=== PATIENT | female | born 1990 | race Caucasian/White ===

== ENCOUNTER 2023-07-24 12:46 | Emergency (ER) | payer BC, SELFPAY ==
[2023-07-24 12:54] VITALS: BP 218/117; PULSE 85; RESP 17; TEMP 36.8; O2SAT 98; BMI 47.9
--- NOTE | 2023-07-24 13:04 | ECG_ITS ---
[facility] Test Date: 2023-07-24 Pat Name: Navya Neri Department: Room: Gender: Female Team Lead: : 1990 Requested By: Lavlele Reynolds Order Number: [id number] Janeen MD: Pham Espinosa M.D. Measurements Intervals [place] Rate: 86 P: 52 RI: 143 QRS: 54 QRSD: 92 T: 37 QT: 365 QTc: 438 Interpretive Statements SINUS RHYTHM No previous ECG available for comparison Electronically Signed On 07-24-2023 21:08:25 TEAM FACILITATOR by Pham Espinosa M.D. [id number]
--- NOTE | 2023-07-24 13:05 | XR_ITS ---
WS: [id number] Exam: XR chest 2V* [id number] Date/Time of Exam: 07/24/2023 1:41 PM Reason For Exam: CHF r/o No prior exams. The lungs are fully expanded and clear. Normal cardiomediastinal structures. Bony elements are intact . There is spondylosis of the thoracic spine. IMPRESSION: 1. No acute cardiopulmonary finding.
--- NOTE | 2023-07-24 13:13 | W.ED.RECABL ---
HPI - Recheck/Abnormal Lab/Rx General: Chief Complaint: Recheck/Abnormal Lab/Rx Stated Complaint: elevated bp Time Seen by Provider: 07/24/23 12:59 Source: patient Mode of arrival: ambulatory Limitations: no limitations History of Present Illness: Patient is a 32-year-old female with no past medical history presents to the emergency department complaining of high blood pressure readings onset 3 weeks. Patient has a wrist blood pressure cuff that she has been using at home to measure her blood pressures. She states that her systolic blood pressures have ran anywhere from 140?190. She is not currently on any medications and does not have a primary care provider. She states that she can feel when her blood pressure runs high, as she feels hot and starts to have spots appear in her vision. She also notes periods of heart racing. She has no personal history of cardiac issues, and denies any immediate family history. She denies any headache, abdominal pain, back pain, peripheral edema, chest pain, or shortness of breath. MD complaint: other (High blood pressure readings) Onset/Timin Initial visit (ago): week(s) Review of Systems General: Reports: 10 or more systems reviewed and unremarkable except in HPI and below Const: Reports: other (High blood pressure readings); Denies: fever(s), chills or fatigue Eyes: Reports: floaters; Denies: blurry vision ENMT: Denies: throat pain, ear or mastoid pain or nasal discharge Card: Reports: palpitations (Heart racing); Denies: chest pain, swelling of feet/ankles or lightheadedness Resp: Denies: dyspnea, productive cough or wheezing GI: Denies: abdominal pain, nausea, vomiting, diarrhea or constipation : Denies: flank pain, difficulty voiding, dysuria or urinary frequency Musc: Denies: neck pain, back pain or joint pain Skin/Breast: Denies: rash Neuro: Denies: headache(s), numbness in extremities or weakness in extremities Endo: Reports: flushing Physical Exam Const: COMMON NORMALS: no acute distress, patient oriented x3 and no limitations GENERAL APPEARANCE: cooperative, comfortable and well developed NUTRITIONAL APPEARANCE: obese ORIENTATION/CONSCIOUSNESS: Yes awake, Yes oriented to person, Yes oriented to place and Yes oriented to time HENMT: COMMON NORMALS: normocephalic, atraumatic and hearing grossly normal bilaterally HEAD & SCALP: normocephalic and atraumatic Eye: COMMON NORMALS: Equal, round and reactive pupils present, EOMs intact bilaterally and conjunctivae normal CONJUNCTIVA: Yes conjunctivae normal PUPIL: Yes Equal, round and reactive pupils present Neck/C-Spine: COMMON NORMALS: full ROM, supple and no JVD Resp: COMMON NORMALS: normal respiratory effort, No retractions, No use of accessory muscles and clear to auscultation bilaterally AUSCULTATION: clear to auscultation bilaterally, no crackles, no rales, no rhonchi and no wheezes Cardio: COMMON NORMALS: no JVD, regular rate, regular rhythm, S1 normal heart sound present, S2 normal heart sound present, No gallops present (Cardio), No clicks present (Cardio), No murmurs present (Cardio) and No rub (Cardio) RATE: regular rate RHYTHM: regular rhythm HEART SOUNDS: S1 normal heart sound present and S2 normal heart sound present GI: COMMON NORMALS: Normal to inspection, nondistended, normoactive bowel sounds present, Soft to palpation, non-tender, No hepatosplenomegaly present and no bruits AUSCULTATION: Yes normoactive bowel sounds PALPATION: Yes Soft to palpation and Yes No hepatosplenomegaly present RECTAL EXAM: deferred Back/Pelvis: COMMON NORMALS: thoracic and lumbar spine normal to inspection, no thoracic nor lumbar tenderness and thoraco-lumbar ROM normal Extremity: COMMON NORMALS: normal to inspection, full ROM and capillary refill normal Neuro: COMMON NORMALS: patient oriented x3, moves all extremities, no focal motor deficits and no sensory deficits noted SENSORIUM/ORIENTATION: Yes oriented to person, Yes oriented to place and Yes oriented to time Psych: COMMON NORMALS: mental status grossly normal and Normal thought process present THOUGHT PROCESS: Normal thought process present Skin: COMMON NORMALS: no rashes or lesions noted GENERAL SKIN EXAM: no rashes or lesions noted Course Vital Signs: Vital signs: Vital Signs Temperature 98.2 F 07/24/23 12:54 Pulse Rate 87 07/24/23 15:03 Respiratory Rate 17 07/24/23 12:54 Blood Pressure 153/102 07/24/23 15:03 Pulse Oximetry 99 07/24/23 15:03 Oxygen Delivery Me thod Room Air 07/24/23 15:03 MDM - Recheck/Abnormal Lab/Rx Medical Decision Making This patient was seen and evaluated in the emergency department today for high blood pressure readings for the past 3 weeks. On arrival her blood pressure was noted to be 218/117, improved to 139/84 after administration of IV labetalol and IV Ativan. Otherwise her vitals have remained normal including normal heart rate and O2 saturation on room air. Her examination was overall unremarkable. EKG exhibited a normal sinus rhythm and no acute ST segment changes. Chest x-ray revealed no acute cardiopulmonary process. test negative. Laboratory testing was overall unremarkable, including negative troponin. UA unremarkable. She stated that she does not have a primary care provider at this time. Patient will be discharged with a prescription for lisinopril and she will establish and follow-up with primary care provider to further discuss any additional workup or medication treatment. Patient agrees with this plan and reasons to return are discussed. Patient discharged home. Lab Data 07/24/23 13:21 07/24/23 13:21 Laboratory Results WBC 9.02 10^3/uL (3.29-11.43) 07/24/23 13:21 RBC 5.65 10^6/uL (3.85-5.65) 07/24/23 13:21 Hgb 15.50 g/dL (11.27-16.99) 07/24/23 13:21 Hct 47.0 % (36-47) 07/24/23 13:21 MCV 83.2 fl (85-98) L 07/24/23 13:21 MCH 27.4 pg (27-33) 07/24/23 13:21 MCHC 33.0 g/dL (30-55) 07/24/23 13:21 RDW 13.0 % (12.1-15.1) 07/24/23 13:21 Plt Count 353 10^3/cmm (157-399) 07/24/23 13:21 MPV 9.1 fL (7.4-10.4) 07/24/23 13:21 Neut % (Auto) 52.6 % 07/24/23 13:21 Lymph % (Auto) 40.0 % 07/24/23 13:21 [place] % (Auto) 6.0 % 07/24/23 13:21 Eos % (Auto) 0.7 % 07/24/23 13:21 Baso % (Auto) 0.4 % 07/24/23 13:21 Neut # (Auto) 4.74 10^3/uL (1.8-7.7) 07/24/23 13:21 Lymph # (Auto) 3.6 10^3/uL (0.8-4.8) 07/24/23 13:21 [place] # (Auto) 0.5 10^3/uL (0.2-0.9) 07/24/23 13:21 Eos # (Auto) 0.1 10^3/uL (0.0-0.8) 07/24/23 13:21 Baso # (Auto) 0.0 10^3/uL (0.0-0.1) 07/24/23 13:21 Nucleated RBC % (auto) 0 % 07/24/23 13:21 Nucleated RBCs # 0.0 /100WBC 07/24/23 13:21 Sodium 140 mmol/L (136-145) 07/24/23 13:21 Potassium 4.0 mmol/L (3.5-5.1) 07/24/23 13:21 Chloride 104 mmol/L (98-107) 07/24/23 13:21 Carbon Dioxide 25 mmol/L (22-29) 07/24/23 13:21 Anion Gap 15.0 (5-19) 07/24/23 13:21 BUN 7 mg/dL (6-20) 07/24/23 13:21 Creatinine 0.7 mg/dL (0.5-0.9) 07/24/23 13:21 GFR Calculation 97.6 mL/min (90-130) 07/24/23 13:21 Glucose 83 mg/dL (65-115) 07/24/23 13:21 Calculated Osmolality 287 mOsm/kg (285-295) 07/24/23 13:21 Calcium 9.5 mg/dL (8.5-10.5) 07/24/23 13:21 Total Bilirubin 0.4 mg/dL (0.15-1.2) 07/24/23 13:21 AST 16 U/L (0-32) 07/24/23 13:21 ALT 23 U/L (0-33) 07/24/23 13:21 Alkaline Phosphatase 68 U/L (35-105) 07/24/23 13:21 Troponin T Baseline 9 ng/L (0-10) 07/24/23 13:21 Total Protein 7.6 g/dL (6.6-8.7) 07/24/23 13:21 Albumin 4.7 g/dL (3.5-5.2) 07/24/23 13:21 Globulin 2.9 g/dL (1.3-4.6) 07/24/23 13:21 TSH 5.02 uIU/mL (0.27-4.20) H 07/24/23 13:21 HCG, Qual Negative (Negative) 07/24/23 13:21 Urine Color Light yellow (Yellow) 07/24/23 14:32 Urine Appearance Sl hazy (CLEAR) A 07/24/23 14:32 Urine pH 6 (5-7) 07/24/23 14:32 Ur Specific [place] 1.005 (1.005-1.030) 07/24/23 14:32 Urine Protein Neg (Negative) 07/24/23 14:32 Urine Glucose (UA) Norm (Normal) 07/24/23 14:32 Urine Ketones Negative (Negative) 07/24/23 14:32 Urine Blood 3+ (Negative) H 07/24/23 14:32 Urine Nitrate Negative (Negative) 07/24/23 14:32 Urine Bilirubin Neg (Negative) 07/24/23 14:32 Urine Urobilinogen Norm mg/dL (Negative) 07/24/23 14:32 Ur Leukocyte Esterase Negative (Negative) 07/24/23 14:32 Urine RBC 0-4 /hpf (0-2) H 07/24/23 14:32 Urine WBC 0-4 /hpf (0-5) H 07/24/23 14:32 Ur Squamous Epith Cells 0-4 /hpf (0-5) H 07/24/23 14:32 Amorphous Sediment Not Reportable 07/24/23 14:32 Urine Bacteria Trace /hpf (NONE) 07/24/23 14:32 All radiology interpretation(s) finalized by discharge EKG Data EKG 1: I personally reviewed and interpreted this EKG as follows: EKG interpretation date: 07/24/23 EKG interpretation time: 13:21 Interpretation: Normal sinus rhythm. Rate 86. Normal axis. Normal intervals. No acute ST segment changes. EKG 2: I personally reviewed and interpreted this EKG as follows: EKG interpretation date: 07/24/23 EKG interpretation time: 15:15 Prior EKG tracings: available for review Interpretation: Normal sinus rhythm. Rate 75. Normal axis. Normal intervals. No acute ST segment changes. No change from previous. Discharge Plan Discharge Patient Disposition: Home Clinical Impression: Hypertension Qualifiers: Hypertension type: primary hypertension Qualified Code(s): I10 - Essential (primary) hypertension Condition: Stable Prescriptions: New lisinopril 20 mg tablet 20 mg PO DAILY 30 Days Qty: 30 0RF Discharge Orders: Discharge ED (Routine); Ordered 07/24/23 Ordered By: Lavelle Jernigan Discharge Diet: Usual diet Discharge Activity: Increase activity as tolerated Patient Instructions: Opioid Safety, Pain Management Activity Restrictions/Additional Instructions: Take lisinopril as prescribed. Plenty of fluids. Monitor blood pressure readings at home and keep a log to discuss with primary care provider. Follow-up with primary care provider. Return if you develop any new or worsening symptoms. Coding Level of Care Code ED [employer] Machine Operator for Jovan Baker
[2023-07-24 13:14] VITALS: BP 139/109; PULSE 76; O2SAT 99
[2023-07-24 13:30] VITALS: BP 146/107; PULSE 76; O2SAT 98
[2023-07-24 13:32] LABS: Basophils % 0.4 %; Eosinophils # 0.1 10^3/uL (0.0-0.8); Eosinophils % 0.7 %; Lymphocytes # 3.6 10^3/uL (0.8-4.8); Mean Corpuscular Hemoglobin 27.4 pg (27-33); Mean Corpuscular Volume 83.2 fl (85-98); Mean Platelet Volume 9.1 fL (7.4-10.4); Monocytes # 0.5 10^3/uL (0.2-0.9); Neutrophils # 4.74 10^3/uL (1.8-7.7); Neutrophils % 52.6 %; Nucleated Red Blood Cells % 0 %; Platelet Count 353 10^3/cmm (157-399); Red Blood Count 5.65 10^6/uL (3.85-5.65); White Blood Count 9.02 10^3/uL (3.29-11.43)
[2023-07-24] MEDS: labetalol 5 mg/mL SDV 20mL 20 MG IVP (13:32)
[2023-07-24] MEDS: LORazepam 2 mg/mL INJ 10 mL MDV 1 MG IVP (13:33)
[2023-07-24 13:44] LABS: HCG, Serum Qual Negative (Negative)
[2023-07-24 13:55] LABS: Troponin(5th) Baseline 9 ng/L (0-10)
[2023-07-24 14:00] VITALS: BP 139/84; PULSE 79; O2SAT 96
[2023-07-24 14:01] LABS: Alanine Aminotransferase 23 U/L (0-33); Albumin Level 4.7 g/dL (3.5-5.2); Alkaline Phosphatase 68 U/L (35-105); Aspartate Amino Transferase 16 U/L (0-32); Blood Urea Nitrogen 7 mg/dL (6-20); Calcium 9.5 mg/dL (8.5-10.5); Carbon Dioxide 25 mmol/L (22-29); Chloride 104 mmol/L (98-107); Creatinine Clr Calc Pharmacy 170.0047; Globulin 2.9 g/dL (1.3-4.6); Glomerular Filtration Rate 97.6 mL/min (90-130); Glucose 83 mg/dL (65-115); Osmolality Calculated 287 mOsm/kg (285-295); Sodium 140 mmol/L (136-145); Thyroid Stimulating Hormone 5.02 uIU/mL (0.27-4.20); Total Bilirubin 0.4 mg/dL (0.15-1.2); Total Protein 7.6 g/dL (6.6-8.7)
[2023-07-24 14:15] VITALS: BP 129/94; PULSE 79; O2SAT 98
[2023-07-24 15:03] VITALS: BP 153/102; PULSE 87; O2SAT 99
--- NOTE | 2023-07-24 15:04 | ECG_ITS ---
[facility] Test Date: 2023-07-24 Pat Name: Navya Neri Department: Room: Gender: Female Power System Engineer: : 1990 Requested By: Lavelle Reynolds Order Number: [id number] Janeen MD: Pham Espinosa M.D. Measurements Intervals [place] Rate: 75 P: 48 IN: 157 QRS: 62 QRSD: 87 T: 40 QT: 359 QTc: 403 Interpretive Statements SINUS RHYTHM Compared to ECG 07/24/2023 13:18:11 No significant changes Electronically Signed On 07-24-2023 21:17:10 CLOCK AND WATCH ASSEMBLER by Pham Espinosa M.D. [id number]
[2023-07-24 15:12] LABS: Add Urine Microscopic? YES; Bilirubin Urine Neg (Negative); Blood Urine 3+ (Negative); Glucose Urine UA Norm (Normal); Ketones Urine Negative (Negative); Leukocyte Esterase Urine Negative (Negative); Nitrate Urine Negative (Negative); Protein Urine Neg (Negative); Specific Gravity, Urine 1.005 (1.005-1.030); Urine Appearance SL Hazy (CLEAR); Urine Color Light yellow (Yellow); Urobilinogen Urine Norm (Negative); pH Urine 6 (5-7)
[2023-07-24 15:13] LABS: Add Urine Culture? No; Bacteria Urine TRACE /hpf; RBC Urine 0-4 /hpf (0-2); Squamous Epithelial Cell Urine 0-4 /hpf (0-5); WBC Urine 0-4 /hpf (0-5)
[2023-07-24] MEDS: lisinopril 20 mg Tablet PO (15:35)
--- NOTE | 2023-07-25 04:17 | DCPLANNER ---
Message sent to [facility] for PCP
== END 2023-07-24 15:45 | disposition home or self-care (01) ==
PROVIDERS: Emergency Provider Physician Assistant
DX: I10 Essential (primary) hypertension (principal)
CPT/HCPCS: 36415; 71046; 80053; 81001; 84443; 84484; 84703; 85025; 93005; 96374; 96375; 99285; J2060; J3490

== ENCOUNTER → 2023-07-31 10:38 | Outpatient (BNVA) | payer BC, SELFPAY | PROVIDERS: PCP Clinical Nurse Specialist Adult Health; Visit Provider Clinical Nurse Specialist Adult Health | DX: R31.9 Hematuria, unspecified (principal); R79.89 Other specified abnormal findings of blood chemistry | CPT/HCPCS: 81000 ==

== ENCOUNTER → 2023-09-30 08:33 | Outpatient (BNVA) | payer BC, SELFPAY | PROVIDERS: PCP Clinical Nurse Specialist Adult Health; Visit Provider Clinical Nurse Specialist Adult Health | DX: R79.89 Other specified abnormal findings of blood chemistry (principal) | CPT/HCPCS: 84439; 84443 ==